=== PATIENT | female | born 1980 | race African-American/Black ===

== ENCOUNTER 2018-09-24 09:54 | Emergency (ER) | payer MEDICAID ==
[~2018-09-24 09:54] MED LIST: ISOVUE-370 76%-LOCM 1 ML ONE
[2018-09-24 10:40] LABS: Bilirubin Negative (Negative); Blood, Urine Negative (Negative); Clarity CLEAR (Clear); Glucose, Urine (Dipstick) Negative (Negative); Leukocyte Negative (Negative); Nitrite Negative (Negative); Protein, Urine (Dipstick) Negative (Neg-Trace); Specific Gravity, Urine 1.009 (1.002-1.036); Urobilinogen 0.2 mg/dL (0.2-1.0)
[2018-09-24 10:40] LABS: #Basophils 0.1 thou/uL (0.0-0.2); #Monocytes 0.6 thou/uL (0.11-0.59); #Neutrophils 2.8 thou/uL (1.40-6.50); %Basophils 1.3 % (0.0-1.0); %Eosinophils 0.6 % (0.0-10.0); %Lymphocytes 36.7 % (21.0-51.0); %Monocytes 10.5 % (0.0-10.0); %Neutrophils 50.9 % (42.0-75.0); Hemoglobin 11.8 g/dL (12.0-16.0); Mean Corpuscular HGB CONC 32.7 g/dL (32.0-36.0); Mean Corpuscular Hemoglobin 30.3 pg (27.0-31.0); Mean Corpuscular Volume 92.5 fL (78.0-98.0); Mean Platelet Volume 8.3 fL (7.4-10.4); Platelet Count 215 thou/uL (130-400); RBC Distribution Width 11.8 % (11.5-14.5); Red Blood Cell (RBC) Count 3.91 mill/uL (4.20-5.40); White Blood Cell (WBC) Count 5.4 thou/uL (4.8-10.8)
[2018-09-24 10:48] LABS: BHCG - Serum Negative (NEGATIVE); Pregs Control Background? CLEAR/WHITE (CLR/WHITE); Pregs Control Bar Appear? YES (CONTROL BAR)
[2018-09-24 11:00] LABS: ALT (SGPT) 23 U/L (8-55); AST (SGOT) 25 U/L (5-34); Albumin 3.8 g/dL (3.5-5.0); Alkaline Phosphatase 43 U/L (40-150); Anion Gap 9 mmol/L (10-20); BUN (Urea Nitrogen) 9 mg/dL (7.0-18.7); Bilirubin, Total 0.4 mg/dL (0.2-1.2); Calc. Creatinine Clearance 0 mL/min (70-130); Carbon Dioxide 27 mmol/L (22-29); Chloride 109 mmol/L (98-107); Estimated GFR-MDRD 78; Globulin 2.8 g/dL (2.4-3.5); Glucose 81 mg/dL (70-105); Potassium 4.2 mmol/L (3.5-5.1); Protein, Total 6.6 g/dL (6.0-8.3); Sodium 141 mmol/L (136-145)
--- NOTE | 2018-09-24 13:14 | CT ---
CT ABDOMEN AND PELVIS WITH IV CONTRAST: History: Suprapubic abdominal pain. FINDINGS: The lung bases are clear. The spleen, pancreas, adrenal glands, and kidneys are normal. No calcified gallstones are seen. No free air or lymphadenopathy is noted. There is a small amount of free fluid i n the pelvis. The uterus and ovaries are normal appearing. A normal appearing appendix is noted. Ther e is no evidence of aneurysmal dilatation of the abdominal aorta. Vascular calcifications are present . No acute osseous abnormalities are seen. IMPRESSION: Small amount of free fluid in the pelvis, otherwise unremarkable exam. POS: [facility]
== END 2018-09-24 12:01 | disposition home or self-care (01) ==
LOC: ERS 09:54
DX: R10.9 Unspecified abdominal pain (principal); R19.00 Intra-abdominal and pelvic swelling, mass and lump, unspecified site
CPT/HCPCS: 74177; 80053; 81003; 84703; 85025; Q9966